=== PATIENT | female | born 1980 | race Caucasian/White ===

== ENCOUNTER 2021-11-10 08:16 | Day surgery (SDC) | payer MEDICARE ==
[2021-11-09 12:07] LABS: COVID AG,FIA SOURCE NASOPHARYNGEAL
[2021-11-09 12:09] LABS: HEMATOCRIT 37.6 % (36-46); HEMOGLOBIN 13.1 g/dL (12.0-16.0); MEAN CORPUSCULAR HEMOGLOBIN 31.4 pg (26.0-34.0); MEAN CORPUSCULAR HGB CONC 34.8 G/dL (31.0-37.0); MEAN CORPUSCULAR VOLUME 90 fL (80-100); PLATELET COUNT (AUTO) 276 K/uL (150-450); RED BLOOD CELL COUNT(AUTO) 4.18 MIL/uL (4.00-5.20); RED CELL DISTRIBUTION WIDTH 13.1 % (11.5-14.5)
[2021-11-09 12:19] LABS: ANION GAP 8 mmol/L (8-16); CALCIUM, TOTAL 9.2 mg/dL (8.8-10.5); CARBON DIOXIDE 28 mmol/L (22-29); CHLORIDE 102 mmol/L (98-107); CREATININE 0.68 mg/dL (0.60-1.30); GLOMERULAR FILTR. RATE CALC > 60 mL/min (>60); GLUCOSE,RANDOM 85 mg/dL (70-110); POTASSIUM 3.6 mmol/L (3.5-5.1); SODIUM SERUM 138 mmol/L (136-145); UREA NITROGEN, BLOOD 11 mg/dL (7-18)
[2021-11-09 12:23] LABS: BAND NEUTROPHILS % (MANUAL) 1 % (0-5); LYMPHOCYTES % (MANUAL) 32 % (22-44); MONOCYTES % (MANUAL) 7 % (2-9); SEGMENTED NEUTROPHILS % 60 % (40-70)
[2021-11-09 12:27] LABS: ALANINE AMINOTRANSFERASE 20 U/L (12-78); ALBUMIN 4.3 g/dL (3.4-5.0); ALKALINE PHOSPHATASE 36 U/L (46-116); ASPARTATE AMINOTRANSFERASE 16 U/L (15-37); BILIRUBIN,TOTAL 0.5 mg/dL (0.1-1.0); TOTAL PROTEIN, SERUM 7.8 g/dL (6.4-8.2)
[~2021-11-10] VITALS: Ht 160 cm; Wt 58.6 kg
[~2021-11-10 08:16] MED LIST: BUPIVACAINE HCL/PF 0.25% 30 ML VIAL ONE; LOSA-382 PO; RINGERS SOLUTION,LACTATED 1,000 ML IV ONE; SODIUM CL IRRIG SOLN BAG 6,000 ML IRRIG ONE
[2021-11-10] MEDS ORDERED: FentaNYL CITRATE PF 100 MCG/2 ML VIAL IVP ONE (08:17)
[2021-11-10] MEDS ORDERED: ONDANSETRON HCL 4 MG/2 ML VIAL IVP ONE (08:17)
[2021-11-10] MEDS ORDERED: PROPOFOL 1% 20 ML VIAL IVP ONE (08:17)
[2021-11-10] MEDS ORDERED: LIDOCAINE/PF 2% 5 ML VIAL IM ONE (08:17)
[2021-11-10] MEDS ORDERED: MIDAZOLAM HCL 2 MG/2 ML VIAL IVP ONE (08:17)
[2021-11-10] MEDS ORDERED: DEXAMETHASONE SOD PHOS 4 MG/ML VIAL IVP ONE (08:17)
[2021-11-10] MEDS ORDERED: KETOROLAC TROMETHAMINE 60 MG/2 ML VIAL IM ONE (08:17)
[2021-11-10] MEDS ORDERED: RINGERS SOLUTION,LACTATED 1,000 ML IV ONE (08:43)
[2021-11-10] MEDS: RINGERS SOLUTION,LACTATED 1,000 ML IV ONE ×2 (09:08→09:10)
[2021-11-10] MEDS ORDERED: BUPIVACAINE HCL/PF 0.25% 30 ML VIAL ONE (10:25)
[2021-11-10] MEDS ORDERED: ACETAMINOPHEN 1000 MG/ISO-OSM 100 ML IV ONE (10:33)
[2021-11-10] MEDS ORDERED: HYDROmorphone 2 MG/ML VIAL IVP PRN (11:15)
[2021-11-10] MEDS ORDERED: FentaNYL CITRATE PF 100 MCG/2 ML VIAL IVP PRN (11:15)
[2021-11-10] MEDS ORDERED: MEPERIDINE-PF 25 MG/ML VIAL IVP PRN (11:15)
[2021-11-10] MEDS ORDERED: OXYGEN THERAPY IH SCH (20:00)
== END 2021-11-10 13:20 | disposition home or self-care (01) ==
LOC: SURGERY 08:16
PROVIDERS: ATTEND Student in an Organized Health Care Education/Training Program
DX: Z30.2 Encounter for sterilization (principal); I10 Essential (primary) hypertension; Z79.01 Long term (current) use of anticoagulants; Z79.899 Other long term (current) drug therapy; Z98.890 Other specified postprocedural states
CPT/HCPCS: 36415 ×2; 58301; 58670; 80053; 84703; 85007; 85027; 85730; 86850; 86900; 86901; 87426; 88302; 88312; 93005; C9803; J0131; J1100; J1885; J2250; J2405; J2704; J3010; J3490 ×2; J7120